=== PATIENT | female | born 1995 | race Caucasian/White ===

== ENCOUNTER 2019-10-10 15:45 | Observation (INO) ==
[2019-10-10 16:56] LABS: Basophils # (auto) 0.05 K/uL (0-0.2); Basophils % (auto) 0.4 %; Eosinophils # (auto) 0.44 K/uL (0-0.5); Eosinophils % (auto) 3.8 %; Hematocrit (blood only) 38.5 % (37-47); Immature Granulocytes # (auto) 0.03 K/uL (0.00-0.02); Immature Granulocytes % (auto) 0.3 %; Lymphocytes # (auto) 1.07 K/uL (1.2-3.4); Lymphocytes % (auto) 9.3 %; Mean Corpuscular Hemoglobin 32.5 pg (25-34); Mean Corpuscular Hgb Conc 36.4 g/dL (32-36); Mean Corpuscular Volume 89.3 fL (80-100); Mean Platelet Volume 10.1 fL (7.4-10.4); Monocytes # (auto) 0.59 K/uL (0.11-0.59); Monocytes % (auto) 5.1 %; Neutrophils # (auto) 9.33 K/uL (1.4-6.5); Neutrophils % (auto) 81.1 %; Platelet Count 113 K/uL (130-400); RDW Coefficient of Variation 11.1 % (11.5-14.5); RDW Standard Deviation 36.2 fL (36.4-46.3); Red Blood Count 4.31 M/uL (4.2-5.4); White Blood Count 11.51 K/uL (4.8-10.8)
[2019-10-10 17:05] LABS: Partial Thromboplastin Ratio 1.1; Partial Thromboplastin Time 29.5 Seconds (21.0-31.0); Prothrombin Time 10.2 Seconds (9.0-12.0)
[2019-10-10 17:16] LABS: Alanine Aminotransferase 27 U/L (12-78); Albumin Level 3.9 gm/dl (3.4-5.0); Aspartate Aminotransferase 11 U/L (15-37); BUN Creatinine Ratio 14.6 (10-20); Blood Urea Nitrogen 10 mg/dl (7-18); Calcium 9.4 mg/dl (8.5-10.1); Carbon Dioxide 25 mmol/L (21-32); Chloride 105 mmol/L (98-107); Creatinine Clr Calc Pharmacy 122.5 ml/min; Est GFR (Non-African American) 124.3; Glucose 90 mg/dl (70-99); Potassium 3.8 mmol/L (3.5-5.1); Sodium 136 mmol/L (136-145)
[2019-10-10 17:19] LABS: Albumin Globulin Ratio 0.8 (0.9-2); Alkaline Phosphatase 72 U/L (45-117); Bilirubin,Total 0.5 mg/dl (0.2-1); Globulin 4.8 gm/dl (2.5-4.0); Total Protein 8.7 gm/dl (6.4-8.2)
[2019-10-10] MEDS ORDERED: OPTIRAY 320 125ml IV PRN (17:22)
--- NOTE | 2019-10-10 17:37 | CT Scan Report ---
CT angio chest PE protocol CT DOSE: 364.41 mGy.cm HISTORY: 23 years-old Female with pleuritic cp, bcp use, recent travel. Acute pleuritic chest pain with recent travel TECHNIQUE: Multiple CTA images of the chest were obtained after the intravenous administration of 116 ml Optiray 320. Coronal and sagittal MIPS were obtained from the axial data set and were submitted for review. All measurements were obtained according to NASCET criteria. A dose lowering technique w as utilized adhering to the principles of ALARA. COMPARISON: None. FINDINGS: CTA: Heart is normal in size. No pericardial effusion. No thoracic aortic aneurysm or dissection. Patency of the imaged great vessels. Pulmonary arterial tree is opacified to the level the subsegmental branc hes. Extensive pulmonary emboli are noted bilaterally which involves the left main pulmonary artery, left lower lobe and lingula lobar, segmental and subsegmental branches and also involving the segment al and subsegmental branches of the right lower lobe. No saddle embolus or definite evidence of right heart strain. CT CHEST: Unremarkable thyroid. No adenopathy. Small left pleural effusion. No pneumothorax. Irregular pleural- based triangular consolidative and groundglass opacities are noted within the lung bases. No overt pu lmonary edema. Central airways appear patent. No acute process of the imaged upper abdomen. The breast parenchyma and soft tissues appear unremarka ble. The bones appear intact. No acute fracture. IMPRESSION: 1. Extensive bilateral pulmonary emboli as above. 2. Small left pleural effusion with bibasilar opacities suggestive of atelectasis with pulmonary infa rctions. ACT 112: Negative or not required by law. The above report was generated using voice recognition software. It may contain grammatical, syntax o r spelling errors. Electronically signed by: Silverio Longoria M.D. 10/10/2019 5:36 PM
[2019-10-10 17:42] LABS: Troponin I < 0.015 ng/ml (0-0.045)
[2019-10-10] MEDS ORDERED: HEPARIN SODIUM/DEXTROSE 25,000 UNITS/500 ML BAG IV SCH (18:00)
[2019-10-10 18:18] LABS: Pregnancy Test, Serum Negative (Negative)
--- NOTE | 2019-10-10 18:39 | Emergency Department Note ---
History of Present Illness General Chief complaint: Neck Injury/Pain Stated complaint: NECK, SHOUDLER & BACK PAIN, SOB Time Seen by Provider: 10/10/19 15:59 Source: patient Mode of arrival: ambulatory Limitations: no limitations History of Present Illness Maximum Pain Intensity: 6 This patient is a 23-year-old female who presents to the emergency department accompanied by her boyfriend for evaluation of back pain and shortness of breath. The patient states that 3 weeks ago, she flew home from [place] where she was visiting family. She reports that soon after, she began developing intermittent stabbing pains in her back on both sides. She states that the pain seemed to improve slightly, however she was still having the pain with deep breath or with laughing/sneezing. She states that now, she has noticed some shortness of breath and the pain is radiating into her chest and left shoulder. She states the pain has been waking her up at night and making it difficult for her to stay asleep. She started a new control pill 2 months ago. She states that she is a former smoker but denies any smoking over the past 2 months. She denies any known personal or family history of blood clots. Denies any fevers or cough. 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 Required: No Beliefs That Will Affect Care: None Current Living Situation: Other Current Living Situation Comment: appartment with roommates/boyfriend Other Information That Helps Us Care for You: No Feels Safe at Home: Yes Safety Concerns: Feels Safe At This Time Smoking Status: Former smoker Smoking End Date: August ; Tobacco Cessation Education Requested by Patient: No Hx Substance Use: No Review of Systems A total of 10 systems reviewed and were otherwise negative Physical Exam Vital Signs Vital Signs - 24 hr 10/10/19 15:55 10/10/19 17:46 10/10/19 19:00 Temperature 36.8 C Temperature Source Oral Pulse Rate 106 H Pulse Rate [Apical] 81 87 Respiratory Rate 18 18 20 Respiratory Effort / Characteristics Normal for Patient Blood Pressure 138/83 Blood Pressure [Left Arm] 106/75 131/85 Blood Pressure Mean 101 Blood Pressure Mean [Left Arm] 85 100 Blood Pressure Position [Left Arm] Sitting Pulse Oximetry 97 98 98 Oxygen Delivery Method Room Air Room Air Sepsis Recent Fever Within 48 Hours No Sepsis New/Unexplained Change in Mental Status No Sepsis Action Taken by Nursing No Action Required VITALS: Vitals are noted on the nurse's note and reviewed by myself. Vital signs stable. GENERAL: This is a 23-year-old female, in no acute distress, well-developed well-nourished. SKIN: The skin was without rashes. EARS: External auditory canals clear, tympanic membranes pearly manning without erythema or effusion bilaterally. EYES: Pupils equal round and reactive to light and accommodation. NOSE: Patent, turbinates without inflammation or discharge. MOUTH: Mucous membranes moist. Tonsils are not enlarged. Pharynx without erythema or exudate. NECK: Supple without nuchal rigidity. No lymphadenopathy. HEART: Regular rate and rhythm without murmurs gallops or rubs. LUNGS: Clear to auscultation bilaterally without wheezes, rales or rhonchi. ABDOMEN: Positive bowel sounds x 4. Soft, nontender to palpation. No guarding or rebound tenderness. EXTREMITIES: No tenderness of the calves. No pitting edema. NEURO: Patient was alert and oriented to person place and time. Course Consultations Consultation #1: Dr. Douglas - [facility] [place] Administered Medications Ioversol (Optiray 320 125ml) 116 ml IV ONCE PRN PRN Reason: Interaction Checking Stop: 10/14/19 17:21 Last Admin: 10/10/19 17:22 Dose: 116 ml Documented by: [id number] Discontinued Medications Enoxaparin Sodium (Lovenox 1 Mg/Kg Providers Use Dosing Set) 1 mg SQ Q12H NAHOMY Stop: 11/09/19 19:44 Last Admin: 10/10/19 21:30 Dose: Not Given Documented by: [id number] Enoxaparin Sodium (Lovenox) 70 mg SQ NOW STA Stop: 10/10/19 19:50 Last Admin: 10/10/19 20:12 Dose: 70 mg Documented by: [id number] Heparin Sodium/Dextrose () 1 ea IV NOW STA; Protocol Stop: 10/10/19 17:50 Last Admin: 10/10/19 18:46 Dose: Not Given Documented by: [id number] Heparin Sodium/Dextrose (Heparin Sodium/Dextrose) 25,000 units in 500 mls @ 0.02 mls/hr IV .Q24H NAHOMY; Protocol Stop: 11/09/19 17:59 Last Admin: 10/10/19 18:46 Dose: Not Given Documented by: [id number] Medical Decision Making Differential Diagnosis Differential diagnosis includes PE, pneumonia, pneumothorax, muscle spasm, mass/malignancy, among others. Home Medications Current Medication List: was personally reviewed by me Laboratory Data Attestation: I reviewed the patient's lab results. Result diagrams: 10/10/19 16:41 10/10/19 16:41 Lab Results 10/10/19 10/10/19 10/10/19 Range/Units 16:41 16:41 16:41 WBC 11.51 H (4.8-10.8) K/uL RBC 4.31 (4.2-5.4) M/uL Hgb 14.0 (12.0-16.0) g/dL Hct 38.5 (37-47) % MCV 89.3 (80-100) fL MCH 32.5 (25-34) pg MCHC 36.4 H (32-36) g/dL RDW Std Deviation 36.2 L (36.4-46.3) fL RDW Coeff of Du 11.1 L (11.5-14.5) % Plt Count 113 L (130-400) K/uL MPV 10.1 (7.4-10.4) fL Immature Gran % (Auto) 0.3 % Neut % (Auto) 81.1 % Lymph % (Auto) 9.3 % [place]iple[place] % (Auto) 5.1 % Eos % (Auto) 3.8 % Baso % (Auto) 0.4 % Immature Gran # (Auto) 0.03 H (0.00-0.02) K/uL Neut # (Auto) 9.33 H (1.4-6.5) K/uL Lymph # (Auto) 1.07 L (1.2-3.4) K/uL Ripley # (Auto) 0.59 (0.11-0.59) K/uL Eos # (Auto) 0.44 (0-0.5) K/uL Baso # (Auto) 0.05 (0-0.2) K/uL PT 10.2 (9.0-12.0) Seconds INR 1.0 (0.9-1.1) APTT 29.5 (21.0-31.0) Seconds PTT Ratio 1.1 Sodium 136 (136-145) mmol/L Potassium 3.8 (3.5-5.1) mmol/L Chloride 105 (98-107) mmol/L Carbon Dioxide 25 (21-32) mmol/L Anion Gap 6.0 (3-11) BUN 10 (7-18) mg/dl Creatinine 0.65 (0.6-1.2) mg/dl Est Cr Clr Drug Dosing 122.5 ml/min Est GFR ( Amer) 144.0 Est GFR (Non-Af Amer) 124.3 BUN/Creatinine Ratio 14.6 (10-20) Glucose 90 (70-99) mg/dl Calcium 9.4 (8.5-10.1) mg/dl Total Bilirubin 0.5 (0.2-1) mg/dl AST 11 L (15-37) U/L ALT 27 (12-78) U/L Alkaline Phosphatase 72 (45-117) U/L Troponin I < 0.015 (0-0.045) ng/ml Total Protein 8.7 H (6.4-8.2) gm/dl Albumin 3.9 (3.4-5.0) gm/dl Globulin 4.8 H (2.5-4.0) gm/dl Albumin/Globulin Ratio 0.8 L (0.9-2) HCG, Qual (Negative) 10/10/19 Range/Units 16:41 WBC (4.8-10.8) K/uL RBC (4.2-5.4) M/uL Hgb (12.0-16.0) g/dL Hct (37-47) % MCV (80-100) fL MCH (25-34) pg MCHC (32-36) g/dL RDW Std Deviation (36.4-46.3) fL RDW Coeff of Du (11.5-14.5) % Plt Count (130-400) K/uL MPV (7.4-10.4) fL Immature Gran % (Auto) % Neut % (Auto) % Lymph % (Auto) % Ripley % (Auto) % Eos % (Auto) % Baso % (Auto) % Immature Gran # (Auto) (0.00-0.02) K/uL Neut # (Auto) (1.4-6.5) K/uL Lymph # (Auto) (1.2-3.4) K/uL Ripley # (Auto) (0.11-0.59) K/uL Eos # (Auto) (0-0.5) K/uL Baso # (Auto) (0-0.2) K/uL PT (9.0-12.0) Seconds INR (0.9-1.1) APTT (21.0-31.0) Seconds PTT Ratio Sodium (136-145) mmol/L Potassium (3.5-5.1) mmol/L Chloride (98-107) mmol/L Carbon Dioxide (21-32) mmol/L Anion Gap (3-11) BUN (7-18) mg/dl Creatinine (0.6-1.2) mg/dl Est Cr Clr Drug Dosing ml/min Est GFR ( Amer) Est GFR (Non-Af Amer) BUN/Creatinine Ratio (10-20) Glucose (70-99) mg/dl Calcium (8.5-10.1) mg/dl Total Bilirubin (0.2-1) mg/dl AST (15-37) U/L ALT (12-78) U/L Alkaline Phosphatase (45-117) U/L Troponin I (0-0.045) ng/ml Total Protein (6.4-8.2) gm/dl Albumin (3.4-5.0) gm/dl Globulin (2.5-4.0) gm/dl Albumin/Globulin Ratio (0.9-2) HCG, Qual Negative (Negative) Imaging Data Attestation: I personally reviewed and interpreted this imaging study as follows: Radiologist's Impression: CT angio chest PE protocol FINDINGS: CTA: Heart is normal in size. No pericardial effusion. No thoracic aortic aneurysm or dissection. Patency of the imaged great vessels. Pulmonary arterial tree is opacified to the level the subsegmental branches. Extensive pulmonary emboli are noted bilaterally which involves the left main pulmonary artery, left lower lobe and lingula lobar, segmental and subsegmental branches and also involving the segmental and subsegmental branches of the right lower lobe. No saddle embolus or definite evidence of right heart strain. CT CHEST: Unremarkable thyroid. No adenopathy. Small left pleural effusion. No pneumothorax. Irregular pleural-based triangular consolidative and groundglass opacities are noted within the lung bases. No overt pulmonary edema. Central airways appear patent. No acute process of the imaged upper abdomen. The breast parenchyma and soft tissues appear unremarkable. The bones appear intact. No acute fracture. IMPRESSION: 1. Extensive bilateral pulmonary emboli as above. 2. Small left pleural effusion with bibasilar opacities suggestive of atelectasis with pulmonary infarctions. BILATERAL LOWER EXTREMITY VENOUS DOPPLER HISTORY: Pulmonary embolus. Evaluate for DVT. COMPARISON STUDY: None. FINDINGS: There is normal compressibility, flow, and augmentation within the bilateral lower extremity deep venous systems. IMPRESSION: No DVT within the right or left lower extremity. ECG Data Attestation: I personally reviewed and interpreted this ECG as follows: Indication: + chest pain Rate (beats per minute): 90 Rhythm: + normal sinus ECG Intervals/blocks: + Normal QRS and + Normal QT ECG [place]: + Normal ECG ST segments: + Normal ST segments Comparison ECG Date: no prior available Blood Pressure Blood Pressure Findings: Normal blood pressure Blood Pressure Disposition: further management by hospitalist [facility] Narrative The patient is a 23-year-old female who presents today complaining of shortness of breath and upper back/chest pain. Labs revealed a mild leukocytosis, no anemia or concerning electrolyte abnormalities. CT of the chest was performed and showed evidence of extensive bilateral pulmonary emboli. There was no evidence of right heart strain. Troponin was not elevated. EKG showed a normal sinus rhythm. Anticoagulation choice was deferred to the hospitalist. Case was discussed with the [facility] hospitalist service, who will evaluate the patient for evaluation and care. Impression & Plan Bilateral pulmonary embolism Discharge Plan Visit Data *Final* Discharge Date/Time: 10/10/19 20:54 Chief Complaint: Neck Injury/Pain Stated Complaint: NECK, SHOUDLER & BACK PAIN, SOB ED Provider: Chun Tran ED Midlevel Provider: Abbey Ford Discharge Problem: Bilateral pulmonary embolism Patient Disposition: Admitted As Inpatient Discharge Instructions Interventions: ED Discharge Assessment Last Done: 10/10/19 20:54
--- NOTE | 2019-10-10 18:56 | Ultrasound Report ---
BILATERAL LOWER EXTREMITY VENOUS DOPPLER HISTORY: Pulmonary embolus. Evaluate for DVT. COMPARISON STUDY: None. FINDINGS: There is normal compressibility, flow, and augmentation within the bilateral lower extremit y deep venous systems. IMPRESSION: No DVT within the right or left lower extremity. ACT 112: Negative or not required by law. Electronically signed by: Cesar Taylor M.D. 10/10/2019 6:54 PM
--- NOTE | 2019-10-10 19:12 | History & Physical Report ---
Date of Service October 10, 2019 Assessment & Plan (1) Pulmonary embolism: Lovenox 1mg/kg SQ BID. Plan to switch to PO Eliquis or Xarelto depending on insurance tomorrow. Expected duration of treatment 3-6 months (patient to consider prophylactic dosing on future flights). No further vaping or estrogen containing oral contraceptive. Patient advised to avoid ibuprofen while on anticoagulation. Given multiple provoking factors with no family history I do not feel a hypercoagulable workup is required at this time. (2) Hyperproteinemia: Suspect this is mainly related to mild dehydration (ketones noted in urine) rather than related to her PE but will repeat in AM and may consider workup as outpatient if persistent due to association with multiple autoimmune conditions and associated hypercoagulable state. History of Present Illness Primary Care Provider: NO PCP Annabel Fox is a 23 year old female who presented to the ER on advice of [facility] due to 3 week history of bilateral pleuritic chest pain and progressively worse shortness of breath on exertion. Chest pain started off on left back but since has been in multiple locations and currently bilateral but only on inspiration. Severity 2/10, no radiation, no worse on exertion. Shortness of breath on exertion - mostly she has noticed deconditioning when trying to walk up 3 flights of stairs to her apartment which sha manages but has been struggling with. Denies any family history of DVTs/PEs. Provoking factors: 1) estrogen containing COCP started 2 months ago 2) Vaping - although she stopped this 1-2 months ago may have contributed towards hypercoagulable state. Prior to this she smoked but quit 2.5 years ago, total - 3 years; 0.5-1.5 packs/day. 3) 3 hour flight from [place] 3 weeks ago Allergies Allergy/AdvReac Type Severity Reaction Status Date / Time No Known Allergies Allergy Unverified 10/10/19 18:00 Home Medications Home Medications Medication Instructions Recorded Confirmed Type desog-e.estradiol/e.estradiol 1 tab PO DAILY@1900 10/10/19 10/10/19 History [Destiney (28)] ibuprofen [Advil] 400 mg PO Q6H PRN 10/10/19 10/10/19 History Past Med/Surg History Medical History No significant past medical history Social History Preferred Language: Algerian Communication Ability: Effective Fuel Agent Required: No Beliefs That Will Affect Care: None Current Living Situation: Other Current Living Situation Comment: appartment with roommates/boyfriend Other Information That Helps Us Care for You: No Feels Safe at Home: Yes Safety Concerns: Feels Safe At This Time Smoking Status: Former smoker Smoking End Date: August ; Tobacco Cessation Education Requested by Patient: No Hx Substance Use: No Review of Systems Review of Systems: All systems reviewed & are unremarkable except as noted in HPI & below Constitutional: + fever (low grade 2 days prior, resolved, no URI Sx) Cardiovascular: + dyspnea on exertion Genitourinary: Currently on period Physical Exam Constitutional: WD/WN, vitals as above Eyes: + anicteric sclerae; normal pupil size ENMT: external ear and nose normal, oropharynx normal Neck: trachea midline, no thyromegaly Respiratory: normal respiratory effort, lungs clear to auscultation Cardiovascular: Rate/Rhythm: regular rhythm and + tachycardic Heart Sounds: no murmur Extremities: normal capillary refill; no calf tenderness (or swel ling) and no pedal edema Gastrointestinal (Abdomen): normal bowel sounds, soft, nontender, no hepatosplenomegaly Musculoskeletal: no cyanosis or clubbing, extremities motor strength 5/5 Skin: no rashes, warm and dry Neurologic: moves all extremities and awake; no focal motor deficits and not confused Speech / Cognition: normal speech Motor/Sensory: no tremor Psychiatric: A+Ox3, euthymic affect Results & Data Vital Signs (Past 12 Hours) Vital Signs Temp Pulse Pulse Resp BP BP Pulse Ox 10/10/19 17:46 81 18 106/75 98 10/10/19 15:55 36.8 C 106 H 18 138/83 97 Laboratory Results WBC 11.51, Plt 113, total protein 8.7, globulin 4.8. Otherwise unremarkable CBC/CMP/Coag Serum HCG negative Diagnostic Findings CT angio chest PE protocol IMPRESSION: 1. Extensive bilateral pulmonary emboli as above. 2. Small left pleural effusion with bibasilar opacities suggestive of atelectasis with pulmonary infarctions. BILATERAL LOWER EXTREMITY VENOUS DOPPLER IMPRESSION: No DVT within the right or left lower extremity. Medications Administered None given in ER ECG Indication: tachycardia Rate (beats per minute): 90 Rhythm: normal sinus Findings: no acute ischemic change Comparison ECG Date: no prior available Code Status & VTE Plan Code Status Full VTE Prophylaxis Plan VTE Prophylaxis will be ordered: Yes PG Care Time/CCT Total # of Minutes Spent Total Time Spent with Patient: Total time spent is greater than 50% in coordination of care (as documented) at patient's floor/unit and/or counseling patient: Coding Level of Care Code 82970 Initial Inpt Care Lvl 2 Diagnoses Pulmonary embolism I26.94 Pulmonary embolism type: multiple subsegmental (without acute cor pulmonale) Hyperproteinemia E88.09 (1) Pulmonary embolism Pulmonary embolism type: multiple subsegmental (without acute cor pulmonale) Qualified Code(s): I26.94 - Multiple subsegmental pulmonary emboli without acute cor pulmonale
[2019-10-10] MEDS ORDERED: ENOXAPARIN 1 MG/KG SQ SCH (19:45)
[2019-10-10] MEDS ORDERED: ENOXAPARIN 80 MG/0.8 ML SYR SQ STA (19:49)
[2019-10-10] MEDS ORDERED: ONDANSETRON INJ 2 MG/ML 2 ML VIAL IV PRN (21:22)
[2019-10-10] MEDS ORDERED: ACETAMINOPHEN 325 MG TAB PO PRN (21:22)
[2019-10-10 22:15] LABS: Appearance Urine Clear (Clear); Bilirubin Urine Negative (Negative); Blood Urine Negative (Negative); Color Urine Yellow; Glucose Urine UA Negative (Negative); Ketones Urine 1+ (Negative); Leukocyte Esterase Urine Negative (Negative); Nitrite Urine Negative (Negative); Protein Urine Negative (Negative); Specific Gravity Urine 1.022 (1.000-1.030); Urobilinogen Urine Negative (Negative)
[2019-10-11 06:25] LABS: Basophils # (auto) 0.05 K/uL (0-0.2); Basophils % (auto) 0.5 %; Eosinophils # (auto) 0.45 K/uL (0-0.5); Eosinophils % (auto) 4.6 %; Hematocrit (blood only) 38.8 % (37-47); Hemoglobin 13.6 g/dL (12.0-16.0); Immature Granulocytes # (auto) 0.03 K/uL (0.00-0.02); Immature Granulocytes % (auto) 0.3 %; Lymphocytes % (auto) 10.2 %; Mean Corpuscular Hemoglobin 31.3 pg (25-34); Mean Corpuscular Hgb Conc 35.1 g/dL (32-36); Mean Corpuscular Volume 89.2 fL (80-100); Mean Platelet Volume 9.9 fL (7.4-10.4); Monocytes # (auto) 0.78 K/uL (0.11-0.59); Neutrophils # (auto) 7.47 K/uL (1.4-6.5); Neutrophils % (auto) 76.4 %; Platelet Count 120 K/uL (130-400); RDW Coefficient of Variation 10.9 % (11.5-14.5); Red Blood Count 4.35 M/uL (4.2-5.4); White Blood Count 9.78 K/uL (4.8-10.8)
[2019-10-11 07:02] LABS: Albumin Level 3.3 gm/dl (3.4-5.0); BUN Creatinine Ratio 13.9 (10-20); Creatinine Clr Calc Pharmacy 134.9 ml/min; Est GFR (African American) 148.7; Est GFR (Non-African American) 128.3; Potassium 4.1 mmol/L (3.5-5.1)
[2019-10-11 07:04] LABS: Albumin Globulin Ratio 0.7 (0.9-2); Bilirubin,Total 0.4 mg/dl (0.2-1); Globulin 4.4 gm/dl (2.5-4.0); Total Protein 7.7 gm/dl (6.4-8.2)
[2019-10-11] MEDS ORDERED: ENOXAPARIN 80 MG/0.8 ML SYR SQ SCH (08:00)
--- NOTE | 2019-10-11 08:55 | Hospitalist Progress Note ---
Date of Service October 11, 2019 Assessment & Plan (1) Pulmonary embolism: Patient is eager to go home. No shortness of breath at this time. She is switched from Lovenox 1mg/kg SQ BID to apixaban 10 mg p.o. twice daily for 7 days then continue with 5 mg p.o. twice daily. Patient stated she is going to follow-up with with results of hypercoagulability study. Patient is aware that we could not do Antithrombin III since she was on Lovenox. We recommended to do study of Antithrombin III in 7 to 10 days with her PCP or Dr. Huizar. Patient oral contraceptive pills are discontinued as well as ibuprofen. Oral contraceptive pills could be a culprit of pulmonary embolism and ibuprofen can interfere with apixaban. Follow-up with PCP in 7 days and repeat CBC and CMP. Patient was given instructions in regard of apixaban side effects such as bruising and bleeding and or prolonged menstrual period. Subjective Patient seen and examined at the bedside. She is doing much better today. She reports not having difficulties breathing. Patient denies fever, chills, chest pain, shortness of breath, abdominal pain, frequency, urgency. Review of Systems Review of Systems: All systems reviewed & are unremarkable except as noted in HPI & below Physical Exam Constitutional: WD/WN, vitals as above Eyes: + anicteric sclerae; normal pupil size ENMT: external ear and nose normal, oropharynx normal Neck: trachea midline, no thyromegaly Respiratory: normal respiratory effort, lungs clear to auscultation Cardiovascular: Rate/Rhythm: regular rhythm and + tachycardic Heart Sounds: no murmur Extremities: normal capillary refill; no calf tenderness (or swelling) and no pedal edema Gastrointestinal (Abdomen): normal bowel sounds, soft, nontender, no hepatosplenomegaly Musculoskeletal: no cyanosis or clubbing, extremities motor strength 5/5 Skin: no rashes, warm and dry Neurologic: moves all extremities and awake; no focal motor deficits and not confused Speech / Cognition: normal speech Motor/Sensory: no tremor Psychiatric: A+Ox3, euthymic affect Results & Data ([facility]) Vital Signs (Past 12 Hours) Vital Signs Temp Pulse Pulse Pulse Resp BP BP 10/11/19 07:59 37.4 C 99 H 16 105/49 L 10/11/19 07:11 89 10/11/19 04:34 37.2 C 95 H 20 111/71 10/11/19 00:34 86 10/10/19 23:49 36.5 C 97 H 20 114/71 10/10/19 21:57 106 H 10/10/19 21:23 36.7 C 103 H 18 131/81 Pulse Ox 10/11/19 07:59 93 10/11/19 07:11 10/11/19 04:34 96 10/11/19 00:34 10/10/19 23:49 92 10/10/19 21:57 10/10/19 21:23 92 PG Care Time/CCT Total # of Minutes Spent Total Time Spent with Patient: Total time spent is greater than 50% in coordination of care (as documented) at patient's floor/unit and/or counseling patient: Coding Level of Care Code 96501 Subseq Hosp Care Lvl 3 Diagnoses Pulmonary embolism I26.94 Pulmonary embolism type: multiple subsegmental (without acute cor pulmonale) (1) Pulmonary embolism Pulmonary embolism type: multiple subsegmental (without acute cor pulmonale) Qualified Code(s): I26.94 - Multiple subsegmental pulmonary emboli without acute cor pulmonale
--- NOTE | 2019-10-11 11:46 | Electrocardiogram Report ---
Test Reason : Blood Pressure : / mmHG Vent. Rate : 090 BPM Atrial Rate : 090 BPM P-R Int : 134 ms QRS Dur : 090 ms QT Int : 352 ms P-R-T Axes : 034 036 012 degrees QTc Int : 430 ms Normal sinus rhythm Normal ECG No previous ECGs available Confirmed by Mars Cummings ([id number]) on 10/11/2019 11:45:23 AM Referred By: REFERRED SELF Confirmed By:Mars Cummings
--- NOTE | 2019-10-11 13:31 | XCELERA ---
[id number] \\[id number]\[id number]
--- NOTE | 2019-10-11 16:39 | Discharge Summary ---
Date of Service October 11, 2019 Admission HPI Per Admitting Provider Annabel Fox is a 23 year old female who presented to the ER on advice of [facility] due to 3 week history of bilateral pleuritic chest pain and progressively worse shortness of breath on exertion. Chest pain started off on left back but since has been in multiple locations and currently bilateral but only on inspiration. Severity 2/10, no radiation, no worse on exertion. Shortness of breath on exertion - mostly she has noticed deconditioning when trying to walk up 3 flights of stairs to her apartment which [facility] manages but has been struggling with. Denies any family history of DVTs/PEs. Provoking factors: 1) estrogen containing COCP started 2 months ago 2) Vaping - although she stopped this 1-2 months ago may have contributed towards hypercoagulable state. Prior to this she smoked but quit 2.5 years ago, total - 3 years; 0.5-1.5 packs/day. 3) 3 [address] flight from [place] 3 weeks ago Principal Diagnosis none Discharge Exam Constitutional WD/WN, vitals as above Eyes + anicteric sclerae; normal pupil size ENMT external ear and nose normal, oropharynx normal Neck trachea midline, no thyromegaly Respiratory normal respiratory effort, lungs clear to auscultation Cardiovascular Rate/Rhythm: regular rhythm and + tachycardic Heart Sounds: no murmur Extremities: normal capillary refill; no calf tenderness (or swelling) and no pedal edema Gastrointestinal (Abdomen) normal bowel sounds, soft, nontender, no hepatosplenomegaly Musculoskeletal no cyanosis or clubbing, extremities motor strength 5/5 Skin no rashes, warm and dry Neurologic moves all extremities and awake; no focal motor deficits and not confused Speech / Cognition: normal speech Motor/Sensory: no tremor Psychiatric A+Ox3, euthymic affect Discharge Data Allergies Allergy/AdvReac Type Severity Reaction Status Date / Time No Known Allergies Allergy Unverified 10/10/19 18:00 Consultations 10/10/19 18:11 ED Decision to Admit Stat Ordered Studies 10/10/19 16:18 CT angio chest PE protocol Stat 10/10/19 18:02 US venous doppler LE BI Stat Hospital Course (1) Pulmonary embolism: Patient is eager to go home. No shortness of breath at this time. She is switched from Lovenox 1mg/kg SQ BID to apixaban 10 mg p.o. twice daily for 7 days then continue with 5 mg p.o. twice daily. Patient stated she is going to follow-up with with results of hypercoagulability study. Patient is aware that we could not do Antithrombin III since she was on Lovenox. We recommended to do study of Antithrombin III in 7 to 10 days with her PCP or Dr. Huizar. Patient oral contraceptive pills are discontinued as well as ibuprofen. Oral contraceptive pills could be a culprit of pulmonary embolism and ibuprofen can interfere with apixaban. Follow-up with PCP in 7 days and repeat CBC and CMP. Patient was given instructions in regard of apixaban side effects such as bruising and bleeding and or prolonged menstrual period. Total Time Total Time Spent Total Time Spent (In Minutes): over 30 min Discharge Plan Discharge Items Patient Disposition: Home - Self-Care Reason For Visit: SHORTNESS OF BREATH, PLEURITIC CHEST PAIN Discharge Diagnosis: Pulmonary embolism Condition on Discharge: Good Activity: Per Instructions section Lifting: Gradually increase as tolerated Bathing: No limitations Sexual Activity: Wait until after follow-up appointment Exercise/Sports: Wait until after follow-up appointment Non-emergency contact: Primary Care Provider and Specialist Call non-emergency contact if: you have any medication questions, your symptoms worsen, your pain is not controlled, your pain is worsening, your pain is unusual for you, your pain is concerning for you and your temperature is above 101 Follow-up/Referrals: Barrie Fitzpatrick [Primary Care Provider] - 10/14/19 8:20 am (Please, follow up at [facility] with Dr. Barrie Fitzpatrick on ThursdayOctober 14 at 8:20 am. *If you need to change this appointment, call the office at [phone].) Regan Huizar V, DO [Physician] - (Please, follow up with Dr. Huizar or Dr. Valderrama (hematologists) to rule out a blood clotting abnormality. *A nurse from this office will call you with the appointment details. Their office is located in the rear of this hospital building. You should park BEHIND the hospital and enter via [facility]. If you have any questions, call their office at [phone].) Diet: Regular Addtl Attending Provider Instructions: You were diagnosed with pulmonary embolism. Please stop taking oral contraceptive pills. You are started on apixaban 10 mg p.o. twice daily for 7 days and then continue with 5 mg twice daily. Follow-up with pugger helper oncologist Dr. Huizar at the schedule appointment to determine the continuation of your therapy. There are hypercoagulable blood work result is pending. Follow-up with this result when you see Dr. Huizar pugger helper oncologist. Follow-up with PCP within a 7 days. Repeat CBC and CMP at that time. Antithrombin III is not checked because patient was on anticoagulant Lovenox. We recommend to check Antithrombin III in 7 to to 10 days. We discontinued ibuprofen and oral contraceptive pills ibuprofen is discontinued because it can cause interaction with apixaban. Oral contraceptive pills are stopped because they can cause hypercoagulable state. Pending Studies at Discharge: Yes Stand-Alone Forms: My [facility] [employer], Smoking Cessation Medications and DC Order Prescriptions: New Eliquis 5 mg Tablet 10 mg PO BID Qty: 60 RF: 0 Discontinued desog-e.estradiol/e.estradiol [Viorele (28)] 0.15-0.02 mgx21 /0.01 mg x 5 Tablet 1 tab PO DAILY@1900 RF: 0 ibuprofen [Advil] 200 mg Tablet 400 mg PO Q6H PRN (Reason: Pain) RF: 0 Discharge Orders: Discharge Order (Routine); Ordered 10/11/19 Ordered By: Byron Infante Admission Data Admit Date/Time: 10/10/19 19:38 Attending Provider: Byron Infante Admit Provider: Cory Douglas Primary Care Provider: Barrie Fitzpatrick Other Providers: Cory Douglas Other Interventions: Discharge Summary Assessment (RN) Last Done: 10/11/19 16:21 Coding Level of Care Code D/C Day Management >30 mins Diagnoses Pulmonary embolism I26.94 Pulmonary embolism type: multiple subsegmental (without acute cor pulmonale)
[2019-10-11] MEDS ORDERED: APIXABAN 5 MG TABLET PO SCH (21:00)
[2019-10-17 13:45] LABS: Anti Cardiolipin Ab IgG 45 GPL; Anti Cardiolipin Ab IgM 12 MPL; Anti-Cardiolipin Ab IgA <11 APL; B2 Glycoprotein IgA <9 SAU (<=20); B2 Glycoprotein IgG 50 SGU (<=20); B2 Glycoprotein IgM 10 SMU (<=20); Protein S Functional(Activity) 77 % (60-140)
[2019-10-18] MEDS ORDERED: APIXABAN 5 MG TABLET PO SCH (21:00)
== END 2019-10-11 17:00 | disposition home or self-care (01) ==
LOC: 2W 15:45 → ED 15:45 → SUATTDRO 19:38 → 2W 20:54